=== PATIENT | male | born 1980 | race Caucasian/White ===

== ENCOUNTER 2017-01-11 20:45 | Emergency (ER) | payer SELFPAY ==
[2017-01-11 21:30] VITALS: BP 120/64; PULSE 62; RESP 16; TEMP 97.5; O2SAT 98
[2017-01-11] MEDS ORDERED: Lidocaine 1% Inj (20ml) ONE (21:30)
--- NOTE | 2017-01-11 21:42 | ED PDOC ---
Upper Extremity Pain/Injury Time Seen by Provider: 01/11/17 21:27 Chief Complaint (Nursing): Finger,Hand,&Wrist Chief Complaint (Provider): Pinky Injury History Per: Patient Additional Complaint(s): Pain and swelling to the right 5th finger when he hit his hand on the wall while running. (+) deformity. Pt is right hand dominant Past Medical History Reviewed: Historical Data, Nursing Documentation, Vital Signs Vital Signs: Last Vital Signs Temp 97.5 F L 01/11/17 21:27 Pulse 62 01/11/17 21:27 Resp 16 01/11/17 21:27 BP 120/64 01/11/17 21:27 Pulse Ox 98 01/11/17 21:27 - Medical History PMH: No Chronic Diseases - Surgical History Surgical History: No Surg Hx - Family History Family History: States: No Known Family Hx - Living Arrangements Living Arrangements: With Family - Social History Current smoker - smoking cessation education provided: No Alcohol: None Drugs: Denies - Home Medications Home Medications: Ambulatory Orders Medication Instructions Recorded Ibuprofen [Motrin] 600 mg PO Q6 #20 tab 01/11/17 - Allergies Allergies/Adverse Reactions: Allergies Allergy/AdvReac Type Severity Reaction Status Date / Time No Known Allergies Allergy Verified 01/11/17 21:27 Review of Systems ROS Statement: Except As Marked, All Systems Reviewed And Found Negative Musculoskeletal: Positive for: Other (finger pain) Physical Exam - Reviewed Nursing Documentation Reviewed: Yes Vital Signs Reviewed: Yes - Physical Exam Appears: Positive for: Well, Non-toxic, No Acute Distress Head Exam: Positive for: ATRAUMATIC, NORMAL INSPECTION, NORMOCEPHALIC Skin: Positive for: Normal Color, Warm, DRY Eye Exam: Positive for: EOMI, Normal appearance, PERRL ENT: Positive for: Normal ENT Inspection Neck: Positive for: Normal, Painless ROM Cardiovascular/Chest: Positive for: Regular Rate, Rhythm Respiratory: Positive for: CNT, Normal Breath Sounds Gastrointestinal/Abdominal: Positive for: Normal Exam, Bowel Sounds, Soft Back: Positive for: Normal Inspection Extremity: Positive for: Deformity (dorsal angulation of right 5th digit from PIP joint, distal sensation intact. ), Swelling Neurologic/Psych: Positive for: Alert, Oriented - ECG O2 Sat by Pulse Oximetry: 98 Medical Decision Making Medical Decision Making: (+) dislocation noted on XR Digital block administered by Enforcement Officer using 6 cc 1% plain lido reduction preformed by news writer. Pt tolerated procedure well. post reduction films reveal successful joint relocation. Pt placed in finger splint by news writer Disposition - Clinical Impression Clinical Impression: Finger dislocation - Patient ED Disposition Is Patient to be Admitted: No - Disposition Disposition: Routine/Home Disposition Time: 22:42 Condition: STABLE Prescriptions: Ibuprofen [Motrin] 600 mg PO Q6 #20 tab Instructions: Finger Dislocation (ED) - POA Present On Arrival: Falls Or Trauma
[2017-01-11] MEDS ORDERED: Lidocaine 1% Inj (20ml) IJ ONE (21:46)
--- NOTE | 2017-01-12 09:26 | RAD ---
PROCEDURE: Right small finger radiographs. HISTORY: r/o fxr/ dislocation COMPARISON: None. TECHNIQUE: AP radiograph of the right hand, as well as spot oblique and lateral images of small finger were obtained. FINDINGS: RIGHT SMALL FINGER: The current study reveals dorsal and slight lateral the dislocation of the middle phalanx with respect to the proximal phalanx right 5th finger no definitive evidence of acute displaced fracture. . . JOINTS: As above SOFT TISSUES: Normal. OTHER FINDINGS: None. IMPRESSION: Dorsal and slight lateral the dislocation of the middle phalanx with respect to the proximal phalanx right 5th finger no definitive evidence of acute displaced fracture.
--- NOTE | 2017-01-12 09:28 | RAD ---
PROCEDURE: Right small finger radiographs. HISTORY: post reduction COMPARISON: None. TECHNIQUE: AP radiograph of the right hand, as well as spot oblique and lateral images of small finger were obtained. FINDINGS: RIGHT SMALL FINGER: Interval of reduction previously noted dorsal and lateral dislocation of the middle phalanx with respect to the proximal phalanx. Mild surrounding soft tissue swelling. . JOINTS: Remaining joint spaces are unremarkable. No significant osteoarthritis SOFT TISSUES: As above. No evidence of radiopaque foreign bodies OTHER FINDINGS: None IMPRESSION: . Interval of reduction previously noted dorsal and lateral dislocation of the middle phalanx with respect to the proximal phalanx. Mild surrounding soft tissue swelling. . No acute fracture seen.
== END 2017-01-11 22:48 | disposition home or self-care (01) ==
LOC: H.ER 20:45
DX: S63.256A Unspecified dislocation of right little finger, initial encounter (principal); W22.01XA Walked into wall, initial encounter; Y93.02 Activity, running